=== PATIENT | male | born 1995 | race African-American/Black ===

== ENCOUNTER 2019-09-13 18:57 | Emergency (ER) | payer OTHER, SELFPAY ==
--- NOTE | 2019-09-13 19:03 | ED.GENADULT ---
HPI - General Adult General Chief complaint: Upper Respiratory Infection Stated complaint: sore throat Time Seen by Provider: 09/13/19 19:15 Source: patient Mode of arrival: ambulatory Limitations: no limitations History of Present Illness HPI narrative: 24-year-old male patient presents to the [facility] with complaints of sore throat for the past week. Patient denies any fevers, ear pain. Patient states he has had a little bit of a runny nose and stuffy nose and some sinus issues that he has been taking Claritin for. Patient states he is also noted a little couple little bumps on his lower lip. Denies any abdominal pain, nausea, vomiting or diarrhea. Denies taking any other medications for his pain. Related Data Allergies Allergy/AdvReac Type Severity Reaction Status Date / Time No Known Allergies Allergy Verified 09/13/19 19:03 Review of Systems Review of Systems: Narrative: CONSTITUTIONAL: Denies fever, chills, or sweats. EYES: Denies visual changes, redness, or discharge. ENT: Denies rhinorrhea, congestion, positive sore throat, denies otalgia. CARDIOVASCULAR: Denies chest pain, palpitations, or edema. RESPIRATORY: Denies cough or dyspnea. GASTROINTESTINAL: Denies abdominal pain, nausea, vomiting, or diarrhea. GENITOURINARY: Denies dysuria or hematuria. SKIN: Denies rash or itching. MUSCULOSKELETAL: Denies back pain, joint pain, or myalgia. NEUROLOGIC: Denies headache, numbness, or weakness. PSYCHIATRIC: Denies anxiety or depression. PMFSH Comments At the time of my signature I agree with nursing past medical history, surgical, social, and family history. There is no relevant family history pertinent to the presenting complaint. Exam Narrative: Exam Narrative: GENERAL: Well-appearing, well-nourished, and in no acute distress. HEAD: Normocephalic, atraumatic. EYES: PERRLA and EOMI. ENT: Nares with erythema and edema noted bilaterally, no rhinorrhea or epistaxis. Mucous membranes moist. Posterior pharynx with 2+ tonsil enlargement and some white exudates noted on the left side. Bilateral TMs are clear no erythema or foreign bodies in the canal. Patient has about 3 or 4 red little bumps on the bottom lip. No blisters noted. No open wounds or discharge noted. Not painful or itchy. NECK: Supple. No lymphadenopathy CHEST: Clear to auscultation. No respiratory distress. HEART: Regular rate and rhythm. No murmur heard. Normal peripheral pulses. ABDOMEN: Soft, nontender, nondistended, normal active bowel sounds. EXTREMITIES: Normal range of motion. No edema. SKIN: Warm, dry, no rash. NEURO: No focal deficits. Alert and oriented x3. Course Reevaluation(s) Reevaluation #1: Reevaluated patient after his strep test had resulted. Notified patient that he is negative today for strep. Discussed with him we will take his specimen and send it off to the lab for further testing if it does come back positive in the next day or 2 we will call him to place him on antibiotics. Discussed with him I do believe that a lot of the drainage that he is had from his sinuses and his nose could be going down to the back of his throat causing the irritation to the throat. Discussed with him that we will will give him a little bit of a steroid to help dry up some of the drainage and help with the swelling of the tonsils and I want him to continue taking the Claritin. Discussed with patient about coronavirus and symptoms and discussed with him that sore throat is 1 of the symptoms. Offered to test patient for COVID-19 today and he does agree with this. Discussed with him I will write an order and send it over to the hospital. Discussed with him that they will call him and make an appointment to have him drive through for testing. Patient verbalized understanding of this and denies any other questions or concerns at this time. Patient is currently not working at this time. Patient states that he does live at home with both of his parents who are not c
[2019-09-13 19:12] VITALS: BP 151/89; PULSE 76; RESP 18; TEMP 37.4; O2SAT 98
== END 2019-09-13 19:50 | disposition home or self-care (01) ==
PROVIDERS: Emergency Provider Nurse Practitioner Family; PCP Internal Medicine
DX: J01.00 Acute maxillary sinusitis, unspecified (principal); J03.90 Acute tonsillitis, unspecified; Z20.828 Contact with and (suspected) exposure to other viral communicable diseases
CPT/HCPCS: 87081; 87880; 99203; G0463